=== PATIENT | female | born 1965 ===

== ENCOUNTER 2019-06-18 06:21 | Day surgery (SDC) | payer OTHER ==
[~2019-06-18 06:21] MED LIST: AMBIE PO; CLORAZEPATE DI7.5 MG PO; [UNRECOGNIZED DRUG - OTHER] PO
== END 2019-06-18 15:20 | disposition home or self-care (01) ==
LOC: CIR.AMB 06:21
DX: D12.9 Benign neoplasm of anus and anal canal (principal); K64.8 Other hemorrhoids

== ENCOUNTER 2020-06-16 05:43 | Day surgery (SDC) | payer OTHER | END 2020-06-16 09:50 | disposition home or self-care (01) | LOC: AMB-ENDOS 05:43 | PROVIDERS: ATTEND Colon & Rectal Surgery | DX: D12.3 Benign neoplasm of transverse colon (principal); K64.2 Third degree hemorrhoids; Z20.828 Contact with and (suspected) exposure to other viral communicable diseases ==